=== PATIENT | male | born 1980 | race Hispanic/Latino ===

== ENCOUNTER 2023-10-15 16:17 | Emergency (ER) | payer BC, MEDICAID, SELFPAY ==
--- NOTE | ~2023-10-15 | XR_ITS ---
EXAMINATION: XR chest 2V Exam Date/Time: 10/15/2023 17:05 CDT HISTORY: diff breathing x 2 weeks dx pneumonia 1 week ago non smoker Comparison: None. RESULT: Lines, tubes, and devices: None. Lungs and pleura: Diffuse patchy groundglass and reticulonodular opacities, worse in the right lung. Minimal right lateral costophrenic angle blunting. Fluid in the minor fissure. Cardiomediastinal silhouette: Stable. Other: No acute osseous or upper abdominal finding. IMPRESSION: Pulmonary opacities may represent moderate pulmonary edema versus infection, such as bronchopneumonia . Small right pleural effusion, with suspected loculation in the minor fissure. Reviewed, dictated and finalized at location K. IMPRESSION: Pulmonary opacities may represent moderate pulmonary edema versus infection, gasca ch as bronchopneumonia. Small right pleural effusion, with suspected loculation in the minor fissure.
[2023-10-15 16:33] VITALS: BP 140/75; PULSE 90; RESP 20; TEMP 36.9; O2SAT 97
--- NOTE | 2023-10-15 16:53 | ED.URI ---
HPI - URI/Sore Throat General Chief Complaint: Upper Respiratory Infection Stated Complaint: hard time breathing,cough Time Seen by Provider: 10/15/23 16:53 Source: patient Mode of arrival: ambulatory Limitations: no limitations History of Present Illness HPI Narrative: 43-year-old male on dialysis with hx scleroderma presented for c/o shortness of breath, right posterior chest pain with deep breaths, and cough. States he cannot lay flat or sleep due to difficulty breathing. Patient was treated on 10/08 for pneumonia with symptoms present for over one week; he was discharged from the emergency room with albuterol inhaler, Z-[place], cefdinir, and Flonase. He reports no improvement in symptoms. Last dialysis was yesterday. Denies chest pain, palpitations, nausea, vomiting, diarrhea, edema, fever or lethargy. Related Data Home Medications Medication Instructions Recorded Confirmed amlodipine 10 mg tablet 10 mg PO DAILY 10/15/23 10/15/23 cilostazol 100 mg tablet 100 mg PO BID 10/15/23 10/15/23 famotidine 20 mg tablet 20 mg PO DAILY 10/15/23 10/15/23 ferrous sulfate 325 mg (65 mg 325 mg PO DAILY 10/15/23 10/15/23 iron) tablet (FeroSul) lacosamide 50 mg tablet 50 mg PO BID 10/15/23 10/15/23 metoprolol succinate 25 mg 25 mg PO BID 10/15/23 10/15/23 tablet,extended release 24 hr mycophenolate mofetil 500 mg tablet 1,000 mg PO BID 10/15/23 10/15/23 simvastatin 20 mg tablet 20 mg PO HS 10/15/23 10/15/23 warfarin 5 mg tablet 5 mg PO DAILY 10/15/23 10/15/23 Allergies Allergy/AdvReac Type Severity Reaction Status Date / Time No Known Allergies Allergy Verified 10/15/23 17:17 Review of Systems Review of Systems: CONSTITUTIONAL: Denies body aches, fever, chills, or sweats. EYES: Denies visual changes, redness, or discharge. ENT: Denies rhinorrhea, congestion, sore throat, or otalgia. CARDIOVASCULAR: Denies chest pain, palpitations, or edema. RESPIRATORY: Reports cough, sob, denies wheezing. GASTROINTESTINAL: Denies abdominal pain, nausea, vomiting, or diarrhea. SKIN: Denies rash, itching, or wounds. MUSCULOSKELETAL: reports right back pain, denies joint pain, or myalgia. NEUROLOGIC: Denies headache, numbness, tingling, or weakness. All systems reviewed & are unremarkable except as noted in HPI and below PMFSH Past Medical History Medical History (Updated 10/15/23 @ 18:29 by Aline Lazo APRN) Dialysis patient Scleroderma Surgical History Surgical History (Updated 10/15/23 @ 17:23 by Aline Lazo APRN) History of appendectomy Comments At time of signature, I have reviewed and agree with nursing past medical, surgical, social and family history unless otherwise noted. Please see nursing chart for further information. There is no relevant family history pertinent to the presenting complaint Exam Narrative: GENERAL: chronically ill-appearing, appears older than stated age; in no acute distress. EYES: EOMI. No redness or drainage. Conjunctivae normal. ENT: Mucous membranes pink and moist. No rhinorrhea. NECK: Normal AROM. Supple. CHEST: No respiratory distress. right posterior crackles noted. Speaks full sentences. HEART: Regular rate and rhythm. No murmur appreciated. ABDOMEN: Soft, nontender, nondistended, normal active bowel sounds. EXTREMITIES: Normal range of motion. Mild swelling to bilateral hands. LUE dialysis access, +bruit+thrill. SKIN: jaundice color. Warm, dry, Capillary refill normal. Normal skin turgor. NEURO: Alert and oriented x3. Gait steady. PSYCH: Normal affect. Course Course Emergency Course: Patient is aware of diagnosis, understands and agrees to treatment plan. Anticipatory guidance given. Patient agrees to follow-up as directed and is aware of reasons to seek care at the emergency department. Portions of this record may have been created with voice recognition software Level of Care: Express Care Visit Vital Signs Vital signs: Vital Signs [place]
== END 2023-10-15 18:26 | disposition short-term general hospital (02) ==
PROVIDERS: Emergency Provider Nurse Practitioner Family
DX: R06.02 Shortness of breath (principal); M34.9 Systemic sclerosis, unspecified; Z79.01 Long term (current) use of anticoagulants
CPT/HCPCS: 71046; 99202; G0463